=== PATIENT | male | born 2000 | race Asian ===

== ENCOUNTER 2019-12-07 17:58 | Emergency (ER) | payer SELFPAY ==
[~2019-12-07] VITALS: Ht 167.6 cm; Wt 54.4 kg
--- NOTE | 2019-12-07 19:12 | PHYS DOC ---
Past Medical History Past Medical History: No Pertinent History (RUPERTO PAUL APRN) Past Surgical History: No Surgical History (RUPERTO PAUL APRN) Smoking Status: Never Smoker Alcohol Use: None (RUPERTO PAUL APRN) Attending Signature I have participated in the care of this patient and I have reviewed and agree with all pertinent clinical information above including history, exam, and recommendations. (NORMA SOMERS MD) Adult General Chief Complaint Chief Complaint: DIARRHEA HPI HPI Patient is a 19 year old [Male patient who presents with diarrhea intermittently for the last 3 days. States he has had approximately 4 episodes today thus far, denies any blood in the diarrhea. Denies any mucus in diarrhea. States this is watery and soft. States no fever. States no recent antibiotic use. States no new medications. no change in diet. Denies any recent antibiotic use. Denies any change in medications. States he has not taken anything for this at all. Patient also reports he has had a cough on and off for the last week. States no fevers in it. States coughing goes away at night, however returns again during the day. States he has not taken anything for this at all. States he has gotten a little bit of a sore throat because of his coughing (RUPERTO PAUL APRN) Review of Systems Review of Systems Constitutional: Denies fever or chills [] HENT: Denies nasal congestion does report some sore throat Respiratory: Denies shortness of breath, states occasional cough throughout the day [] Cardiovascular: No additional information not addressed in HPI [] GI: Denies abdominal pain, nausea, vomiting, bloody stools states he has had some intermittent diarrhea over the last 3 days [] : Denies dysuria or hematuria [] Musculoskeletal: Denies back pain or joint pain [] Integument: Denies rash or skin lesions [] Neurologic: Denies headache, focal weakness or sensory changes [] Endocrine: Denies polyuria or polydipsia [] All other systems were reviewed and found to be within normal limits, except as documented in this note. (RUPERTO PAUL APRN) Current Medications Current Medications Current Medications Medications (Trade) Dose Ordered Sig/Patrick Start Time Stop Time Status Last Admin Dose Admin Loperamide HCl (Immodium Oral Susp) 2 mg PRN Q30MIN PRN 12/07/19 19:30 12/07/19 20:05 DC (NORMA SOMERS MD) Allergies Allergies Allergies Coded Allergies Type Severity Reaction Last Updated Verified No Known Drug Allergies 12/07/19 No (NORMA SOMERS MD) Physical Exam Physical Exam Constitutional: Well developed, well nourished, no acute distress, non-toxic appearance. [] HENT: Normocephalic, atraumatic,, oropharynx moist, no oral exudates, nose normal. Tonsils 0. No purulence noted. [] Eyes: PERRLA, EOMI, conjunctiva normal, no discharge. [] Neck: Normal range of motion, no tenderness, supple, no stridor. [] Cardiovascular:Heart rate regular rhythm, no murmur [] Lungs & Thorax: Bilateral breath sounds clear to auscultation [] Abdomen: Bowel sounds normal, soft, no tenderness, no masses, no pulsatile masses. Negative Rovsing. Negative psoas. Negative obturator. Negative heeltap. [] Skin: Warm, dry, no erythema, no rash. [] Back: No tenderness, no CVA tenderness. [] Extremities: No tenderness, no cyanosis, no clubbing, ROM intact, no edema. [] Neurologic: Alert and oriented X 3, normal motor function, normal sensory function, no focal deficits noted. [] Psychologic: Affect normal, judgement normal, mood normal. [] (RUPERTO PAUL APRN) Current Patient Data Vital Signs Vital Signs Date Time Temp Pulse Resp B/P (MAP) Pulse Ox O2 Delivery O2 Flow Rate FiO2 12/07/19 19:46 73 116/57 (76) 97 Room Air 12/07/19 18:55 98.3 16 98.3 (NORMA SOMERS MD) EKG EKG [] (RUPERTO PAUL APRN) Radiology/Procedures Radiology/Procedures [] (RUPERTO PAUL APRN) Course & Med Decision Making Course & Med Decision Making Pertinent Labs and Imaging studies reviewed. (See chart for details) [] Reviewed diarrhea management with patient, will recommend brat diet. Will recommend use of [id number] antidiarrheals as needed. Increase fluid. For cough, will provide Tessalon Perles prescription. Patient to follow-up with primary care provider as needed. (RUPERTO PAUL APRN) Dragon Disclaimer Dragon Disclaimer This electronic medical record was generated, in whole or in part, using a voice recognition dictation system. (RUPERTO PAUL APRN) Departure Departure Impression: Primary Impression: Diarrhea Additional Impression: Cough Disposition: 01 HOME, SELF-CARE Condition: STABLE Referrals: NO PCP (PCP) Patient Instructions: Cough, Adult, Diarrhea, Diet for Diarrhea, Adult Additional Instructions: As we discussed, use [id number] antidiarrheals as needed for the next day or 2. Immodium or Loperamide, per the bottle directions is a good option for an anti-diarrheal. Make sure you are washing your hands well. Make sure you are drinking plenty of fluids, staying hydrated. For the next few days, go back to a basic diet. Bananas, Rice, Applesauce, toast, basic foods that are not difficult to process. For your cough, you may take the capsules as prescribed. You may also consider taking Claritin or Zyrtec, one 10 mg tablet each day as this will help decrease any nasal drainage which may be irritating your cough as well. Try to follow-up with your primary care provider as needed Scripts Benzonatate (TESSALON PERLE) 100 Mg Capsule 100 MG PO TID PRN for COUGH, #20 CAP Prov: RUPERTO PAUL APRN 12/07/19 Problem Qualifiers Primary Impression: Diarrhea Diarrhea type: unspecified type Qualified Codes: R19.7 - Diarrhea, unspecified RUPERTO PAUL APRN Dec 07, 2019 19:12 NORMA SOMERS MD Dec 07, 2019 23:16
[2019-12-07] MEDS ORDERED: LOPERAMIDE 2 MG/15 ML ORAL SUSP. PO PRN (19:30)
[2019-12-07] MEDS ORDERED: BENZ100C PO (19:32)
[2019-12-07 19:46] VITALS: BP 116/57
== END 2019-12-07 19:52 | disposition home or self-care (01) ==
LOC: ER 17:58
DX: R19.7 Diarrhea, unspecified (principal); J02.9 Acute pharyngitis, unspecified; R05 Cough
CPT/HCPCS: 99283